=== PATIENT | male | born 1950 | race Caucasian/White ===

== ENCOUNTER 2017-10-02 18:15 | Observation (INO) | payer OTHER, MEDICARE ==
[~2017-10-02] VITALS: Ht 172.7 cm; Wt 107.0 kg
[~2017-10-02 18:15] MED LIST: ADULT LOW DOSE81 M1 PO; AGGRENOX1 CAPSULE PO; COZAAR100 MG PO; CRESTOR10 MG PO; DIFLORASONE DIA30 GM TP; FENOFIBRATE160 M1 PO; FISH OIL 1,0001 EAC7 PO; LOPRESSOR50 MG PO; NORVASC10 MG PO; OMEGA 3-6-91200 MG PO
[2017-10-02 18:43] LABS: HEMATOCRIT 44.3 % (38.0-50.0); HEMOGLOBIN 15.4 G/DL (12.5-16.6); MCH 32.9 PG (29.0-34.0); MCHC 34.8 G/DL (30.0-36.0); MCV 94.7 FL (86-99); PLATELET COUNT 116 K/uL (156-360); RBC DIS.WIDTH-CV 13.8 % (11.8-14.6); RBC DIS.WIDTH-SD 47.6 % (39-53); RED BLOOD COUNT 4.68 M/uL (4.00-5.50)
[2017-10-02 18:53] LABS: CHLORIDE 104 mEq/L (99-109); SODIUM 140 mEq/L (136-147)
[2017-10-02 18:54] LABS: GLUCOSE 105 mg/dL (70-99)
[2017-10-02 18:58] LABS: CREATININE 0.9 mg/dL (0.6-1.3); GFR ESTIMATE (CALCULATED) > 59 mL/min/ (58.99-99999)
[2017-10-02 18:59] LABS: UREA NITROGEN (BUN) 13 mg/dL (9-23)
[2017-10-02 19:04] LABS: TROP-I INTERPRETATION NEGATIVE; TROPONIN-I < 0.01 ng/mL (0.0-0.30)
[2017-10-02] MEDS ORDERED: FLONASE16 G1 BOTH NARES (19:49)
[2017-10-02 22:34] LABS: D-DIMER ELISA < 150.00 ng/mLDDU (<230)
[2017-10-02 22:36] LABS: MAGNESIUM 1.8 mg/dL (1.3-2.7)
[2017-10-02 22:38] VITALS: BP 129/77
[2017-10-03 01:07] LABS: TROP-I INTERPRETATION NEGATIVE; TROPONIN-I < 0.01 ng/mL (0.0-0.30)
[2017-10-03 04:00] VITALS: BP 126/85
[2017-10-03 06:05] LABS: HEMATOCRIT 43.9 % (38.0-50.0); HEMOGLOBIN 14.5 G/DL (12.5-16.6); MCH 31.8 PG (29.0-34.0); MCV 96.3 FL (86-99); PLATELET COUNT 108 K/uL (156-360); RBC DIS.WIDTH-CV 13.9 % (11.8-14.6); RBC DIS.WIDTH-SD 48.5 % (39-53); RED BLOOD COUNT 4.56 M/uL (4.00-5.50); WHITE BLOOD COUNT 6.1 K/uL (4.1-10.2)
[2017-10-03 06:17] LABS: TROP-I INTERPRETATION NEGATIVE; TROPONIN-I < 0.01 ng/mL (0.0-0.30)
[2017-10-03 06:28] LABS: ALBUMIN 3.7 G/DL (3.2-4.8); ALKALINE PHOSPHATASE 27 IU/L (3-129); ALT (GPT) 16 IU/L (3-49); AST (GOT) 14 IU/L (2-34); CHLORIDE 103 MEQ/L (99-109); GFR ESTIMATE (CALCULATED) > 59 mL/min/ (58.99-99999); GLUCOSE 113 mg/dL (70-99); POTASSIUM 3.7 MEQ/L (3.7-5.4); SODIUM 141 MEQ/L (136-147); TOTAL PROTEIN 6.1 G/DL (6.4-8.3); UREA NITROGEN (BUN) 14 mg/dL (9-23)
[2017-10-03 07:30] LABS: THYROTROPIN (TSH) 3.1 MIU/L (0.4-5.5)
[2017-10-03 07:34] VITALS: BP 124/73
[2017-10-03 11:00] VITALS: BP 134/88
[2017-10-03] MEDS ORDERED: LOPRESSOR50 MG PO (11:20)
[2017-10-03] MEDS ORDERED: LASIX20 MG PO (11:21)
[2017-10-03] MEDS ORDERED: ELIQUIS5 MG PO (11:21)
== END 2017-10-03 13:05 | disposition home or self-care (01) ==
LOC: EME 18:15 → EDOF 21:13 → 5WEST 21:13 → ENRESERV 21:16 → 5WEST 22:23 → ENPENDDIS 10-03 → 5WEST 10-03 13:05
PROVIDERS: Hospitalist; Nurse Practitioner Acute Care
DX: R07.9 Chest pain, unspecified (principal); I48.0 Paroxysmal atrial fibrillation; Z79.01 Long term (current) use of anticoagulants; I25.10 Atherosclerotic heart disease of native coronary artery without angina pectoris; I10 Essential (primary) hypertension; E78.5 Hyperlipidemia, unspecified; Z86.73 Personal history of transient ischemic attack (TIA), and cerebral infarction without residual deficits; I25.2 Old myocardial infarction; Z95.5 Presence of coronary angioplasty implant and graft; Z87.891 Personal history of nicotine dependence; Z82.49 Family history of ischemic heart disease and other diseases of the circulatory system; E66.9 Obesity, unspecified; Z68.35 Body mass index [BMI] 35.0-35.9, adult; Z82.3 Family history of stroke
CPT/HCPCS: 71046; 80048; 80053; 83735; 84443; 84484; 85027; 85379; 93005; 99281; 99285; G0378

== ENCOUNTER 2017-12-08 08:57 | Day surgery (SDC) | payer OTHER, MEDICARE ==
[~2017-12-08] VITALS: Ht 172.7 cm; Wt 102.0 kg
[~2017-12-08 08:57] MED LIST changes: +ELIQUIS5 MG PO; +FLONASE16 G1 BOTH NARES; +LASIX20 MG PO; +XARELTO20 MG PO
== END 2017-12-08 11:35 | disposition home or self-care (01) ==
LOC: CATH 08:57
PROC: 5A2204Z Restoration of Cardiac Rhythm, Single (ICD-10-PCS; principal; 2017-12-08)
DX: I48.1 Persistent atrial fibrillation (principal); I25.2 Old myocardial infarction; I10 Essential (primary) hypertension; I25.10 Atherosclerotic heart disease of native coronary artery without angina pectoris; I65.29 Occlusion and stenosis of unspecified carotid artery; E78.5 Hyperlipidemia, unspecified; I69.321 Dysphasia following cerebral infarction; Z79.82 Long term (current) use of aspirin; Z79.01 Long term (current) use of anticoagulants; Z87.891 Personal history of nicotine dependence; Z95.5 Presence of coronary angioplasty implant and graft
CPT/HCPCS: 93005